=== PATIENT | male | born 1995 | race Caucasian/White ===

== ENCOUNTER 2021-12-11 11:29 | Emergency (ER) | payer OTHER ==
[~2021-12-11] VITALS: Ht 178 cm; Wt 93.0 kg
[2021-12-11 11:37] VITALS: BP 127/84
== END 2021-12-11 13:11 | disposition home or self-care (01) ==
LOC: M.ERS 11:29
DX: S81.811A Laceration without foreign body, right lower leg, initial encounter (principal); W45.8XXA Other foreign body or object entering through skin, initial encounter; Y93.89 Activity, other specified; Y92.89 Other specified places as the place of occurrence of the external cause; Y99.8 Other external cause status